=== PATIENT | female | born 1950 | race Caucasian/White ===

== ENCOUNTER → 2016-10-28 | Outpatient (CLI) | payer BC ==
[~2016-10-28] MED LIST: ANAS1TAB6 PO; BROM0.07 OPR; BUTA1TAB54 PO; CALC-214 PO; CARV25TA2 PO; CHOL20009 PO; CLOB-65 TOP; LEVO200T6 PO; LISI20TA3 PO; LORA10CA2 PO; MULT-506 PO; NSNN50 NAE; PRED1SUS3 OPR; PSEU60TA80 PO; PTDOPS OPB; RANI150T3 PO; RIZA10TA18 PO; TOPI50TA24 PO; TRAZ1TAB8 PO; TRAZ50TA35 PO
[2016-10-28 19:16] LABS: URINE APPEARANCE CLEAR (CLEAR); URINE BILIRUBIN NEG (NEG); URINE COLOR YELLOW; URINE EPITHELIAL CELL AUTO 20-30 /lpf (0-5); URINE NITRITE NEG (NEG); UROBILINOGEN NEG (NEG)
[2016-10-28 19:31] LABS: MANUAL MICROSCOPIC REQUIRED? NO; REVIEW REQ? NO
== END | disposition home or self-care (01) ==
LOC: C.LABSPEC 17:49
PROVIDERS: ATTEND Obstetrics & Gynecology
DX: R30.0 Dysuria (principal)

== ENCOUNTER → 2016-11-09 | Outpatient (CLI) | payer BC ==
[2016-11-09 14:31] VITALS: BP 121/67; PULSE 72; TEMP 36.8; O2SAT 96
--- NOTE | 2016-11-09 16:31 | Radiation Oncology Follow-Up ---
Radiation Oncology Follow-Up Date of Visit Nov 09, 2016. Reason For Visit Annual follow-up Radiation Completion Date APB 02/03/15 Diagnosis (1) Breast cancer, stage 1, estrogen receptor positive Status: Resolved Onset Date: 11/11/2014 Histology Subtype: ductal Stage: l (A) Permanent Comment: Status post biopsy 08/29/2014 revealing LCIS Status post lumpectomy and sentinel lymph node biopsy 11/11/2014 revealing infiltrating ductal carcinoma Status post sentinel lymph node biopsy 12/09/2014 Stage [id number] estrogen receptor positive, progesterone receptor negative, HER-2 /nikos negative Status post completion of radiation therapy 02/03/2015 received 3850 cGy Last Edited By: Catherine Anthony on Apr 08, 2015 15:51 History of Present Illness Mrs. Raines is a 66-year-old female without a significant family history of breast cancer. She underwent bilateral digital screening mammogram on 07/31/2014. This showed a small cluster calcifications seen within the left upper outer quadrant which were somewhat linear in distribution and morphology. These were not significantly changed compared to the 2012 and 2011 exams. However given the linear morphology in distribution spot magnification views were recommended for further evaluation. The remainder of the left breast as well as the right breast are stable. The pacemaker device obscured portions of the left axilla. On 08/22/2014 patient underwent a unilateral left digital diagnostic mammogram. Scattered areas of fibroglandular density was seen in the left breast. A subcentimeter cluster of calcifications were noted in the left upper-outer quadrant with calcifications in the cluster varying straight since sizes. These do not appear significantly changed compared to the study in 2012 however given the morphology DCIS cannot be excluded and a stereotactic guided biopsy was recommended. This was given a high red category 4B of intermediate suspicion for malignancy. On 08/29/2014 patient underwent a left breast stereotactic core biopsy. This revealed lobular carcinoma in situ but no evidence of DCIS or invasive carcinoma. Case: [id number]. The patient met with Dr. Mckeon to discuss treatment options. She recommended an excisional needle localization biopsy with preoperative needle placement. This was scheduled and performed on 11/11/2014. The evaluation of the lumpectomy specimen revealed an infiltrative welldifferentiated ductal adenocarcinoma. The tumor measured 0.5 cm in maximal dimension. This was a [place] grade 1 of 3. The infiltrating tumor was less than 0.5 mm from the inked anterior margin of the specimen. The tumor however failed to extend to the blue ink of the margin. There was no lymphovascular or perineural invasion identified. Estrogen receptors were positive as were progesterone receptors. HER-2/nikos oncogene overexpression was absent by immunohistochemistry and negative by FISH analysis. The immunohistochemical staining for Ki-67 failed to highlight the infiltrative glands at all. Thus the Ki-67 score is 0% in terms of the infiltrative ductal adenocarcinoma. Because of this finding it was decided to send the case for a review to Dr. Maria G Agee at the [facility] for consultation. Case: [id number]. This tissue was reviewed at the [facility]. They agree there is a focus of invasive carcinoma with the presence of significant cautery artifact making the evaluation of this focus difficult. Several immunohistochemical stains were provided supporting the diagnosis of invasive ductal carcinoma. This focus is present within a background of pleomorphic lobular carcinoma in situ. Low-grade ductal carcinoma in situ was identified within several small ducts. S/P #: [id number]. With the finding of invasive carcinoma Dr. Mckeon proceeded with a sentinel node biopsy on 12/09/2014. 2 sentinel nodes were identified and both were negative by immunohistochemical stains for cytokeratin. Case: [id number].. Dr. Mckeon has arranged for the patient to be evaluated by Dr. Marshall for review of the role of adjuvant chemotherapy/ hormonal therapy. An Oncotype DX assay was ordered. However there was insufficient carcinoma present to perform this test. We were also asked to see the patient in referral for evaluation and discussion of the role of adjuvant radiation. She was evaluated with a CT simulation and found to be an excellent candidate for accelerated partial breast treatment Interim History She denies any changes to her breast over the past year. She has noted no masses or tenderness and no change of the axilla. She's had no swelling of her arm. She is up-to-date on mammography. We discussed her mammogram performed . There was no evidence of malignancy. She now may have mammograms once a year. Because of her history of breast cancer the radiologist recommended further surveillance. She has a pacemaker which does not allow for an MRI of the breast. She therefore suggested physiologic imaging. BSGI. This is performed at [facility]. She is working with medical oncology to have this scheduled. She did find that her insurance would not cover this at [facility]. She also has a home in [facility]. She is going to try and have the study performed there. She developed a migraine and was seen and had a CAT scan of the head. This showed an abnormality at the base of the skull. She was then sent for a bone scan. This was negative for metastatic disease. This did have the finding of degenerative activity. Allergies Coded Allergies: Amitriptyline (Verified Allergy, Unknown, INCREASED HEARTBEAT, 07/11/16) Caffeine (Verified Allergy, Unknown, Migraines, 07/11/16) Chocolate (Verified Allergy, Unknown, Migraines, 07/11/16) Dairy (Verified Allergy, Unknown, MAYNARD & Vomiting, 07/11/16) Epinephrine (Verified Allergy, Unknown, Hypotensive, 07/11/16) Gluten (Verified Allergy, Unknown, Celiac, 07/11/16) Morphine (Verified Allergy, Unknown, GI Distress, 07/11/16) Paroxetine (Verified Allergy, Unknown, INCREASED HEARTBEAT, 07/11/16) Shellfish (Verified Allergy, Unknown, Hives & Migraine, 07/11/16) Tapioca (Verified Allergy, Unknown, Sever Migraine, 07/11/16) Tramadol (Verified Allergy, Unknown, LIPS SWELLING, 07/11/16) Vancomycin (Verified Allergy, Unknown, Rash, 07/11/16) Verapamil (Verified Allergy, Unknown, Rash, 07/11/16) Uncoded Allergies: ORANGES (Allergy, Unknown, Severe Migraine, 01/12/15) PCN (Allergy, Unknown, Rash & Swollen Tongue, 01/12/15) PEANUTS (Allergy, Unknown, Severe Migraine, 01/12/15) SULFA (Allergy, Unknown, Disorientation, 01/12/15) Home Medications Scheduled Anastrozole (Anastrozole), 1 TAB PO QAM Calcium W/ Magnesium (Calcium & Magnesium), 1 TAB PO BID Carvedilol (Coreg), 25 MG PO BID Cholecalciferol (Vitamin D), 1 TAB PO DAILY AFTERNOON Clobetasol Propionate 0.05% (Temovate 0.05%), 1 APPLN TOP 2XWK Levothyroxine Sodium (Levothyroxine Sodium), 1 TAB PO QAM Lisinopril (Prinivil), 20 MG PO BID Loratadine (Claritin), 10 MG PO QPM Mometasone Furoate (Nasal) (Nasonex), 1 SPRY JOSE LUIS QPM Multivitamin (Multivitamin), 1 TAB PO BID Pseudoephedrine-Guaifenesin (Mucinex D), 1 TAB PO BID Ranitidine Hcl (Zantac), 150 MG PO QAM Topiramate (Topamax), 2 TAB PO BID Trazodone Hcl (Trazodone), 50 MG PO HS Scheduled PRN Butalbital-Acetaminophen (Bupap), 1 TAB PO DAILY PRN for Headache Olopatadine Hydrochloride (Pataday), 1 DROP OPB DAILY PRN for DRYNESS Rizatriptan Benzoate (Maxalt), 10 MG PO DIRECTED PRN for Migraine Review of Systems Gastrointestinal: Symptoms: WNL GI Comments: Pt reports this is related to her hemorrhoids;Taking metamucil; Oral: Symptoms: No Problems Respiratory: Symptoms: WNL Other Respiratory: Just getting over a cold, otherwise no Urinary: Symptoms: WNL Comments: Recent treatment for UTI x 2 - seeing Dr. Cheng for this; Skin: Symptoms: No Problems Breast: Right Upper Arm Measurement: 26.0 Right Mid Arm Measurement: 21.0 Right Wrist Measurement: 14.5 Left Upper Arm Measurement: 26.5 Left Mid Arm Measurement: 20.8 Left Wrist Measurement: 15.0 Arm Dominence: Right Physical Exam Vital Signs Date Time Temp Pulse Resp B/P Pulse Ox O2 Delivery O2 Flow Rate FiO2 11/09/16 14:31 36.8 72 12 121/67 96 Pain: Patient Pain Scale: 0 - 10 Initial Pain Intensity: 0.0 Fatigue: None General Appearance: no apparent distress Eyes: normal inspection, EOMI ENT: normal ENT inspection, hearing grossly normal Neck: supple, no adenopathy, thyroid normal, + pertinent finding (minimal range of motion on flexion and extension of the neck) Respiratory/Chest: lungs clear, no respiratory distress, no accessory muscle use Breast: Breast examination reveals well-healed incisions on the left breast. There are no masses or tenderness and no axillary adenopathy. She has no skin retractions or nipple changes. Using the [place] score cosmesis she has a good outcome. The right breast showed no masses or tenderness and no axillary adenopathy. Cardiovascular: regular rate, rhythm, no gallop, no murmur Extremities: no pedal edema Neurologic/Psychiatric: no motor/sensory deficits, alert, normal mood/affect Skin: warm/dry Lymphatic: no adenopathy Laboratory Studies Test 10/28/16 00:00 11/09/16 15:14 Urine Color YELLOW Urine Appearance CLEAR (CLEAR) Urine pH 8.0 (4.5-7.5) Urine Specific [place] 1.000 (1.000-1.030) Urine Protein NEG (NEG) Urine Glucose (UA) NEG (NEG) Urine Ketones NEG (NEG) Urine Occult Blood NEG (NEG) Urine Nitrite NEG (NEG) Urine Bilirubin NEG (NEG) Urine Urobilinogen NEG (NEG) Urine Leukocyte Esterase MODERATE (NEG) Urine WBC (Auto) 5-10 /hpf (0-5) Urine RBC (Auto) 0-4 /hpf (0-4) Urine Hyaline Casts (Auto) 0 /lpf (0-5) Urine Epithelial Cells (Auto) 20-30 /lpf (0-5) Urine Bacteria (Auto) NEG (NEG) White Blood Count 5.73 K/uL (4.8-10.8) Red Blood Count 3.31 M/uL (4.2-5.4) Hemoglobin 10.7 g/dL (12.0-16.0) Hematocrit 32.6 % (37-47) Mean Corpuscular Volume 98.5 fL (80-100) Mean Corpuscular Hemoglobin 32.3 pg (25-34) Mean Corpuscular Hemoglobin Concent 32.8 g/dl (32-36) Platelet Count 197 K/uL (130-400) Mean Platelet Volume 11.5 fL (7.4-10.4) Neutrophils (%) (Auto) 67.7 % Lymphocytes (%) (Auto) 20.8 % Monocytes (%) (Auto) 9.1 % Eosinophils (%) (Auto) 1.7 % Basophils (%) (Auto) 0.5 % Neutrophils # (Auto) 3.88 K/uL (1.4-6.5) Lymphocytes # (Auto) 1.19 K/uL (1.2-3.4) Monocytes # (Auto) 0.52 K/uL (0.11-0.59) Eosinophils # (Auto) 0.10 K/uL (0-0.5) Basophils # (Auto) 0.03 K/uL (0-0.2) RDW Standard Deviation 50.0 fL (36.4-46.3) RDW Coefficient of Variation 13.9 % (11.5-14.5) Immature Granulocyte % (Auto) 0.2 % Immature Granulocyte # (Auto) 0.01 K/uL (0.00-0.02) Iron Level 45 mcg/dl (35-150) Total Iron Binding Capacity 281 mcg/dl (250-450) Transferrin 222 mg/dl (200-360) Transferrin % Saturation 14 % (15-50) Ferritin 88.3 ng/ml (8.0-388.0) Vitamin B12 Level 1813 pg/mL (211-911) Folate > 24.00 ng/mL (>5.38) Additional Studies BILATERAL DIGITAL DIAGNOSTIC MAMMOGRAM 3D/2D WITH CAD: 08/08/2016 CLINICAL HISTORY: 66-year-old woman with a personal history of left breast cancer status post treatment. LCIS was a originally found at needle biopsy but subsequent excision yielded invasive cancer with DCIS and LCIS. Comparison is made to exams dated: 02/15/2016 mammogram, 08/03/2015 mammogram, 08/29/2014 mammogram, 11/11/2014 localization, 07/30/2013 mammogram, and 07/25/2012 mammogram - [facility]. FINDINGS: Bilateral CC and MLO 2-D digital and tomosynthesis images, and spot magnification left CC and ML views were obtained. There are scattered areas of fibroglandular density in both breasts. Current study was also evaluated with a Computer Aided Detection (CAD) system. Linear scar markers overlie the left breast. A pacemaker projects over large portion of the superior posterior left breast including the pectoralis muscle. There are scattered bilateral benign coarse calcifications and groupings of round benign-appearing micro-calcifications bilaterally. There are minimal vascular calcifications in the breasts as well. No new suspicious mass, focal architectural distortion or cluster of suspicious microcalcifications is seen. IMPRESSION: ACR BI-RADS CATEGORY 2: BENIGN 1. There is no mammographic evidence of malignancy in the breasts. Given that the patient is almost at the two-year karin status post treatment for left breast cancer, would recommend follow-up mammography in 1 year. 2. The patient desires additional screening given her personal history of left breast cancer. However, given her pacemaker implantation she is not a candidate for surveillance with breast MRI. We discussed the alternative physiologic imaging of breast specific imaging imaging (BSGI), which I know is available at [facility]. The patient will discuss additional surveillance with gamma imaging at her next follow-up oncology appointment. These results and recommendations were discussed with the patient at the time of the exam. Approximately 10% of breast cancers are not detected with mammography. A negative mammographic report should not delay biopsy if a clinically suggestive mass is present. Cierra Mtz M.D. ay/:08/08/2016 14:14:59 Clay Maker: Jaci GE(Seth)(M), [facility] letter sent: Normal 1/2 BI-RADS Code: ACR BI-RADS Category 2: Benign Dictated by: Cierra Mtz MD Signed by: Cierra Mtz MD Assessment & Plan Plan: Continue annual mammography. She is planning to have the additional imaging studying done in [facility]. She is having this coordinated through medical oncology. We asked her to return to our office in 1 year. She may call if she has any questions or concerns in the interim. A copy of the mammogram from 08/08/2016 was given to the patient at her request. Total Time In Follow-Up I spent 15 minutes speaking to the patient and performing examination. Us and 15 minutes reviewing information and completing this note. Copy To Jacinto Moon M.D.; Abhay Marshall D.O. Problem Qualifiers (1) Breast cancer, stage 1, estrogen receptor positive: Laterality: left Qualified Codes: C50.912 - Malignant neoplasm of unspecified site of left female breast; Z17.0 - Estrogen receptor positive status [ER+]
== END | disposition home or self-care (01) ==
LOC: C.ONC 13:58
PROVIDERS: ATTEND Radiology Radiation Oncology
DX: Z08 Encounter for follow-up examination after completed treatment for malignant neoplasm (principal); Z92.3 Personal history of irradiation; Z85.3 Personal history of malignant neoplasm of breast

== ENCOUNTER → 2016-11-15 | Outpatient (CLI) | payer BC ==
[~2016-11-15] MED LIST changes: -BROM0.07 OPR; -PRED1SUS3 OPR; -TRAZ1TAB8 PO
[2016-11-15 14:57] LABS: URINE APPEARANCE CLEAR (CLEAR); URINE BILIRUBIN NEG (NEG); URINE COLOR YELLOW; URINE EPITHELIAL CELL AUTO >30 /lpf (0-5); URINE NITRITE NEG (NEG); URINE PH 7.5 (4.5-7.5); UROBILINOGEN NEG (NEG)
[2016-11-15 15:06] LABS: MANUAL MICROSCOPIC REQUIRED? NO; REVIEW REQ? YES
== END | disposition home or self-care (01) ==
LOC: C.LAB1850 13:20
PROVIDERS: ATTEND Obstetrics & Gynecology
DX: N39.0 Urinary tract infection, site not specified (principal)

== ENCOUNTER → 2017-02-10 | Outpatient (CLI) | payer BC ==
[2017-02-10 14:55] LABS: BASO % 0.7 %; BASO ABS # 0.03 K/uL (0-0.2); COMPLETE YES; EOS % 1.7 %; LYMPH ABS # 0.92 K/uL (1.2-3.4); MEAN CELL VOLUME 100.3 fL (80-100); MEAN CORPUSCULAR HEMOGLOBIN 32.2 pg (25-34); MEAN CORPUSCULAR HGB CONC 32.1 g/dl (32-36); MEAN PLATELET VOLUME 11.7 fL (7.4-10.4); MONO % 9.6 %; PLATELET COUNT 190 K/uL (130-400); RED BLOOD COUNT 3.79 M/uL (4.2-5.4); WHITE BLOOD COUNT 4.18 K/uL (4.8-10.8)
[2017-02-10 15:11] LABS: ALT/SGPT 25 U/L (12-78); BLOOD UREA NITROGEN 12 mg/dl (7-18); BUN/CREATININE RATIO 18.5 (10-20); CARBON DIOXIDE 28 mmol/L (21-32); CHLORIDE 107 mmol/L (98-107); CREATININE 0.67 mg/dl (0.60-1.20); GLUCOSE 101 mg/dl (70-99); POTASSIUM 3.4 mmol/L (3.5-5.1); SODIUM 142 mmol/L (136-145)
[2017-02-10 15:14] LABS: ALB/GLOB RATIO 1.2 (0.9-2); ALKALINE PHOSPHATASE 86 U/L (45-117); AST/SGOT 11 U/L (15-37)
[2017-02-10 15:16] LABS: CALCIUM 9.5 mg/dl (8.5-10.1)
== END | disposition home or self-care (01) ==
LOC: C.LAB 12:31
PROVIDERS: ATTEND Nurse Practitioner Family
DX: C50.919 Malignant neoplasm of unspecified site of unspecified female breast (principal)

== ENCOUNTER → 2017-05-09 | Outpatient (CLI) | payer BC | END | disposition home or self-care (01) | LOC: C.LABSPEC 17:31 | PROVIDERS: ATTEND Obstetrics & Gynecology | DX: N95.2 Postmenopausal atrophic vaginitis (principal) ==

== ENCOUNTER → 2017-05-16 | Outpatient (CLI) | payer BC ==
--- NOTE | 2017-05-16 14:07 | DIAGNOSTIC IMAGING REPORT ---
BILATERAL KNEE RADIOGRAPHS CLINICAL HISTORY: Chronic bilateral knee pain. COMPARISON: Right knee radiographs April 05, 2016. FINDINGS: Right knee: Alignment of the right knee is anatomic. There is no fracture or joint effusion. Joint spaces are preserved. There is mild osteophytosis of the right knee. Left knee: Alignment of the left knee is anatomic. There is mild medial compartment joint space narrowing of the left knee. There is a small to moderate left knee joint effusion. Osteophytosis of the left knee is present. IMPRESSION: Right knee: 1. No acute fracture. 2. Mild osteoarthritis of the right knee. Left knee: 1. No acute fracture. 2. Mild to moderate osteoarthritis within the medial and patellofemoral compartments of the left knee. 3. Small to moderate left knee joint effusion. Electronically signed by: Vicente Slade M.D. 05/16/2017 2:05 PM Dictated Date/Time: 05/16/2017 2:02 PM
== END | disposition home or self-care (01) ==
LOC: C.RDSM 13:34
PROVIDERS: ATTEND Physician Assistant
DX: G89.29 Other chronic pain (principal); M17.0 Bilateral primary osteoarthritis of knee

== ENCOUNTER → 2017-06-29 | Outpatient (CLI) | payer BC | END | disposition home or self-care (01) | LOC: C.LABSPEC 16:39 | PROVIDERS: ATTEND Podiatrist Primary Podiatric Medicine | DX: B35.1 Tinea unguium (principal) ==

== ENCOUNTER → 2017-07-11 | Outpatient (CLI) | payer BC | END | disposition home or self-care (01) | LOC: C.MAMM 10:52 | PROVIDERS: ATTEND Nurse Practitioner Family | DX: C50.919 Malignant neoplasm of unspecified site of unspecified female breast (principal); M81.0 Age-related osteoporosis without current pathological fracture; M85.851 Other specified disorders of bone density and structure, right thigh; M85.852 Other specified disorders of bone density and structure, left thigh ==

== ENCOUNTER → 2017-08-09 | Outpatient (CLI) | payer BC ==
--- NOTE | 2017-08-10 07:47 | MAMMOGRAPHY REPORT ---
BILATERAL DIGITAL DIAGNOSTIC MAMMOGRAM TOMOSYNTHESIS WITH CAD: 08/09/2017 CLINICAL HISTORY: History of left breast cancer status post lumpectomy October 2014. The patient rep orts no current complaints. TECHNIQUE: Breast tomosynthesis in addition to standard 2D mammography was performed. Current study was also evaluated with a Computer Aided Detection (CAD) system. Bilateral CC and MLO 2-D and tomosy nthesis images and spot magnification left CC and ML views were obtained. COMPARISON: Comparison is made to exams dated: 08/08/2016 mammogram, 02/15/2016 mammogram, 08/03/2015 mammogram, 11/11/2014 specimen, 11/11/2014 localization, and 08/29/2014 mammogram - [facility]. BREAST COMPOSITION: There are scattered areas of fibroglandular density in both breasts. FINDINGS: There are stable post surgical changes in the left upper outer quadrant from prior lumpecto my. There are no suspicious masses, calcifications, or areas of architectural distortion noted in ei ther breast. There has been no significant interval change mammographically compared to prior exams. Scattered bilateral benign-appearing calcifications are not significantly changed. A pacemaker pro jects over the left pectoralis muscle. IMPRESSION: ACR BI-RADS CATEGORY 2: BENIGN There is no mammographic evidence of malignancy in either breast. A 1 year screening mammogram is rec ommended. The patient has been verbally notified of the results. Approximately 10% of breast cancers are not detected with mammography. A negative mammographic report should not delay biopsy if a clinically suggestive mass is present. Anastasia Porter M.D. ah/:08/09/2017 10:17:21 Size Changer: Lindsay GE(Seth)(Norah), [facility] letter sent: Normal 1/2 BI-RADS Code: ACR BI-RADS Category 2: Benign
== END | disposition home or self-care (01) ==
LOC: C.MAMM 09:54
PROVIDERS: ATTEND Surgery
DX: Z85.3 Personal history of malignant neoplasm of breast (principal)

== ENCOUNTER → 2017-11-02 | Outpatient (CLI) | payer OTHER ==
[~2017-11-02] VITALS: Ht 170.2 cm; Wt 62.2 kg
[2017-11-02 12:03] VITALS: BP 137/82; PULSE 93; Ht 170.2 cm; Wt 62.2 kg
== END | disposition home or self-care (01) ==
LOC: C.NEUR 11:25
PROVIDERS: ATTEND Internal Medicine Pulmonary Disease
DX: G47.33 Obstructive sleep apnea (adult) (pediatric) (principal)

== ENCOUNTER → 2017-11-09 | Outpatient (CLI) | payer OTHER ==
[~2017-11-09] MED LIST changes: +GABA-113 PO
[2017-11-09 14:32] VITALS: BP 123/79; PULSE 95; TEMP 36.7; O2SAT 98
--- NOTE | 2017-11-09 16:53 | Radiation Oncology Follow-Up ---
Radiation Oncology Follow-Up Date of Visit Nov 09, 2017. Reason For Visit Annual follow-up Radiation Completion Date 02/03/15 Diagnosis (1) Breast cancer, stage 1, estrogen receptor positive Status: Resolved Onset Date: 11/11/2014 Histology Subtype: ductal Stage: l (A) Permanent Comment: Status post left breast biopsy 08/29/2014 revealing LCIS Status post lumpectomy and sentinel lymph node biopsy 11/11/2014 revealing infiltrating ductal carcinoma Status post sentinel lymph node biopsy 12/09/2014 Stage [id number] estrogen receptor positive, progesterone receptor negative, HER-2 /nikos negative Status post completion of radiation therapy 02/03/2015 received 3850 cGy Last Edited By: Catherine Anthony on Nov 09, 2017 16:45 History of Present Illness Mrs. Araujo is without a significant family history of breast cancer. She underwent bilateral digital screening mammogram on 07/31/2014. This showed a small cluster calcifications seen within the left upper outer quadrant which were somewhat linear in distribution and morphology. These were not significantly changed compared to the 2012 and 2011 exams. However given the linear morphology in distribution spot magnification views were recommended for further evaluation. The remainder of the left breast as well as the right breast are stable. The pacemaker device obscured portions of the left axilla. On 08/22/2014 patient underwent a unilateral left digital diagnostic mammogram. Scattered areas of fibroglandular density was seen in the left breast. A subcentimeter cluster of calcifications were noted in the left upper-outer quadrant with calcifications in the cluster varying straight since sizes. These do not appear significantly changed compared to the study in 2012 however given the morphology DCIS cannot be excluded and a stereotactic guided biopsy was recommended. This was given a high red category 4B of intermediate suspicion for malignancy. On 08/29/2014 patient underwent a left breast stereotactic core biopsy. This revealed lobular carcinoma in situ but no evidence of DCIS or invasive carcinoma. Case: [id number]. The patient met with Dr. Mckeon to discuss treatment options. She recommended an excisional needle localization biopsy with preoperative needle placement. This was scheduled and performed on 11/11/2014. The evaluation of the lumpectomy specimen revealed an infiltrative welldifferentiated ductal adenocarcinoma. The tumor measured 0.5 cm in maximal dimension. This was a Richard grade 1 of 3. The infiltrating tumor was less than 0.5 mm from the inked anterior margin of the specimen. The tumor however failed to extend to the blue ink of the margin. There was no lymphovascular or perineural invasion identified. Estrogen receptors were positive as were progesterone receptors. HER-2/nikos oncogene overexpression was absent by immunohistochemistry and negative by FISH analysis. The immunohistochemical staining for Ki-67 failed to highlight the infiltrative glands at all. Thus the Ki-67 score is 0% in terms of the infiltrative ductal adenocarcinoma. Because of this finding it was decided to send the case for a review to Dr. Maria G Agee at the [facility] for consultation. Case: [id number]. This tissue was reviewed at the [facility]. They agree there is a focus of invasive carcinoma with the presence of significant cautery artifact making the evaluation of this focus difficult. Several immunohistochemical stains were provided supporting the diagnosis of invasive ductal carcinoma. This focus is present within a background of pleomorphic lobular carcinoma in situ. Low-grade ductal carcinoma in situ was identified within several small ducts. S/P #: [id number]. With the finding of invasive carcinoma Dr. Mckeon proceeded with a sentinel node biopsy on 12/09/2014. 2 sentinel nodes were identified and both were negative by immunohistochemical stains for cytokeratin. Case: [id number].. Dr. Mckeon has arranged for the patient to be evaluated by Dr. Marshall for review of the role of adjuvant chemotherapy/ hormonal therapy. An Oncotype DX assay was ordered. However there was insufficient carcinoma present to perform this test. We were also asked to see the patient in referral for evaluation and discussion of the role of adjuvant radiation. She was evaluated with a CT simulation and found to be an excellent candidate for accelerated partial breast treatment Interim History She's been doing well over this past year. She denies any changes to her breast. She's noted no masses or tenderness no changes of the axilla. She's had no swelling of her arm. She is up-to-date on mammography. She is on anastrozole and denies side effects. Allergies Coded Allergies: Amitriptyline (Verified Allergy, Unknown, INCREASED HEARTBEAT, 07/11/16) Caffeine (Verified Allergy, Unknown, Migraines, 07/11/16) Chocolate (Verified Allergy, Unknown, Migraines, 07/11/16) Dairy (Verified Allergy, Unknown, MAYNARD & Vomiting, 07/11/16) Epinephrine (Verified Allergy, Unknown, Hypotensive, 07/11/16) Gluten (Verified Allergy, Unknown, Celiac, 07/11/16) Morphine (Verified Allergy, Unknown, GI Distress, 07/11/16) Paroxetine (Verified Allergy, Unknown, INCREASED HEARTBEAT, 07/11/16) Shellfish (Verified Allergy, Unknown, Hives & Migraine, 07/11/16) Tapioca (Verified Allergy, Unknown, Sever Migraine, 07/11/16) Tramadol (Verified Allergy, Unknown, LIPS SWELLING, 07/11/16) Vancomycin (Verified Allergy, Unknown, Rash, 07/11/16) Verapamil (Verified Allergy, Unknown, Rash, 07/11/16) Uncoded Allergies: ORANGES (Allergy, Unknown, Severe Migraine, 01/12/15) PCN (Allergy, Unknown, Rash & Swollen Tongue, 01/12/15) PEANUTS (Allergy, Unknown, Severe Migraine, 01/12/15) SULFA (Allergy, Unknown, Disorientation, 01/12/15) Home Medications Scheduled Anastrozole (Anastrozole), 1 TAB PO QAM Calcium W/ Magnesium (Calcium & Magnesium), 1 TAB PO BID Carvedilol (Coreg), 25 MG PO BID Cholecalciferol (Vitamin D), 1 TAB PO DAILY AFTERNOON Clobetasol Propionate 0.05% (Temovate 0.05%), 1 APPLN TOP 2XWK Gabapentin (Neurontin), 300 MG PO HS Levothyroxine Sodium (Levothyroxine Sodium), 1 TAB PO QAM Lisinopril (Prinivil), 20 MG PO BID Loratadine (Claritin), 10 MG PO QPM Mometasone Furoate (Nasal) (Nasonex), 1 SPRY JOSE LUIS QPM Multivitamin (Multivitamin), 1 TAB PO BID Pseudoephedrine-Guaifenesin (Mucinex D), 1 TAB PO BID Ranitidine Hcl (Zantac), 150 MG PO QAM Topiramate (Topamax), 2 TAB PO BID Trazodone Hcl (Trazodone), 50 MG PO HS Scheduled PRN Butalbital-Acetaminophen (Bupap), 1 TAB PO DAILY PRN for Headache Olopatadine Hydrochloride (Pataday), 1 DROP OPB DAILY PRN for DRYNESS Rizatriptan Benzoate (Maxalt), 10 MG PO DIRECTED PRN for Migraine Review of Systems Gastrointestinal: Symptoms: WNL, Diarrhea GI Comments: takes fibercon Oral: Symptoms: No Problems Respiratory: Symptoms: WNL Other Respiratory: sleep apnea Urinary: Symptoms: WNL Skin: Symptoms: No Problems Breast: Right Upper Arm Measurement: 26.0 Right Mid Arm Measurement: 20.5 Right Wrist Measurement: 14.5 Left Upper Arm Measurement: 26.5 Left Mid Arm Measurement: 20.0 Left Wrist Measurement: 14.5 Arm Dominence: Right Physical Exam Vital Signs Date Time Temp Pulse Resp B/P (MAP) Pulse Ox O2 Delivery O2 Flow Rate FiO2 11/09/17 14:32 36.7 95 18 123/79 98 Fatigue: None General Appearance: no apparent distress Eyes: normal inspection, EOMI ENT: normal ENT inspection, hearing grossly normal Neck: no adenopathy, thyroid normal Respiratory/Chest: lungs clear, no respiratory distress, no accessory muscle use Breast: Breast examination reveals well-healed incisions of the left breast. There are no masses or tenderness no axillary adenopathy. She has no skin retractions or nipple changes. Using the Ihlen score of cosmesis she has excellent outcome. The right breast showed no masses or tenderness and no axillary adenopathy. Cardiovascular: regular rate, rhythm, no gallop, no murmur Extremities: no pedal edema Neurologic/Psychiatric: no motor/sensory deficits, alert, normal mood/affect Pain Management Patient Reports Pain: Yes Pain Location: knees and neck Patient Preferred Pain Scale: 0 - 10 Initial Pain Intensity: 4.0 Pain Management Plan She has joint pain of the knees as well as neck discomfort. Pain is controlled with massage, physical therapy and heat. Laboratory Laboratory Results: not applicable Pathology Pathology Results: not applicable Imaging Imaging Studies: were reviewed, and pertinent findings noted below Imaging Comments Patient: FRANCOIS ARAUJO [facility] Rec: [id number] Address1: [address] Address2: [facility] ID: [id number] Date: 1950 Sex: F Ref Phy: Alejandra Jarrett CRNP Att Phy: Leida Mckeon MD Evon Phy: Arelis Cheng M.D. Inter Phy: Anastasia Porter MD [facility] Zip: [place] [address] SC: [id number] Report #: [id number] Operations Officer Afloat: FARZANA Diagnosis: 12 MO F/U BILATERAL Service Date: 08/09/17 MNE: [id number] Ordering Dr: Leida Mckeon MD CC: Leida Mckeon MD CONF: DICTATED BY: Anastasia Porter MD MAMMOGRAPHY REPORT BILATERAL DIGITAL DIAGNOSTIC MAMMOGRAM TOMOSYNTHESIS WITH CAD: 08/09/2017 CLINICAL HISTORY: History of left breast cancer status post lumpectomy October 2014. The patient reports no current complaints. TECHNIQUE: Breast tomosynthesis in addition to standard 2D mammography was performed. Current study was also evaluated with a Computer Aided Detection (CAD ) system. Bilateral CC and MLO 2-D and tomosynthesis images and spot magnification left CC and ML views were obtained. COMPARISON: Comparison is made to exams dated: 08/08/2016 mammogram, 02/15/2016 mammogram, 08/03/2015 mammogram, 11/11/2014 specimen, 11/11/2014 localization, and 08/29/2014 mammogram - [facility]. BREAST COMPOSITION: There are scattered areas of fibroglandular density in both breasts. FINDINGS: There are stable post surgical changes in the left upper outer quadrant from prior lumpectomy. There are no suspicious masses, calcifications , or areas of architectural distortion noted in either breast. There has been no significant interval change mammographically compared to prior exams. Scattered bilateral benign-appearing calcifications are not significantly changed. A pacemaker projects over the left pectoralis muscle. IMPRESSION: ACR BI-RADS CATEGORY 2: BENIGN There is no mammographic evidence of malignancy in either breast. A 1 year screening mammogram is recommended. The patient has been verbally notified of the results. Approximately 10% of breast cancers are not detected with mammography. A negative mammographic report should not delay biopsy if a clinically suggestive mass is present. Anastasia Porter M.D. /:08/09/2017 10:17:21 Wood Panel Inspector: Lindsay MORE)(Norah), [facility] letter sent: Normal 1/2 BI-RADS Code: ACR BI-RADS Category 2: Benign Dictated by: Anastasia Porter MD Signed by: Anastasia Porter MD Assessment & Plan Plan: Continue regular follow-up with medical oncology and her primary care physician. She continues on anastrozole. Continue follow-up mammography. We reviewed that her next mammogram is a screening mammogram. This is showing stability in her studies. We asked her to return to our office in 1 year. She may call if she has any questions or concerns in the interim. Total Time In Follow-Up I spent 20 minutes speaking to the patient and performing examination. I spent 15 minutes reviewing information in completing this note. Copy To Jacinto Moon M.D.; Abhay Marshall D.O. Problem Qualifiers (1) Breast cancer, stage 1, estrogen receptor positive: Laterality: left Qualified Codes: C50.912 - Malignant neoplasm of unspecified site of left female breast; Z17.0 - Estrogen receptor positive status [ER+]
== END | disposition home or self-care (01) ==
LOC: C.ONC 14:12
PROVIDERS: ATTEND Physician Assistant Medical
DX: Z08 Encounter for follow-up examination after completed treatment for malignant neoplasm (principal); Z92.3 Personal history of irradiation; Z85.3 Personal history of malignant neoplasm of breast

== ENCOUNTER → 2017-11-22 | Outpatient (CLI) | payer OTHER ==
[2017-11-22 15:42] LABS: BASO % 0.6 %; BASO ABS # 0.02 K/uL (0-0.2); EOS % 2.3 %; EOS ABS # 0.08 K/uL (0-0.5); HEMATOCRIT 35.4 % (37-47); HEMOGLOBIN 11.5 g/dL (12.0-16.0); LYMPH % 29.3 %; LYMPH ABS # 1.04 K/uL (1.2-3.4); MEAN CELL VOLUME 100.3 fL (80-100); MEAN CORPUSCULAR HEMOGLOBIN 32.6 pg (25-34); MEAN CORPUSCULAR HGB CONC 32.5 g/dl (32-36); MEAN PLATELET VOLUME 11.4 fL (7.4-10.4); MONO % 10.7 %; MONO ABS # 0.38 K/uL (0.11-0.59); NEUT % 57.1 %; NEUT ABS # 2.03 K/uL (1.4-6.5); PLATELET COUNT 153 K/uL (130-400); RED CELL DISTRIBUTION WIDTH CV 13.2 % (11.5-14.5); RED CELL DISTRIBUTION WIDTH SD 47.7 fL (36.4-46.3); WHITE BLOOD COUNT 3.55 K/uL (4.8-10.8)
[2017-11-22 16:11] LABS: ALBUMIN 3.6 gm/dl (3.4-5.0); BLOOD UREA NITROGEN 9 mg/dl (7-18); CARBON DIOXIDE 27 mmol/L (21-32); CREATININE 0.67 mg/dl (0.60-1.20); GLUCOSE 86 mg/dl (70-99); POTASSIUM 3.2 mmol/L (3.5-5.1); SODIUM 140 mmol/L (136-145)
[2017-11-22 16:13] LABS: ALKALINE PHOSPHATASE 74 U/L (45-117); ALT/SGPT 20 U/L (12-78); AST/SGOT 12 U/L (15-37)
== END | disposition home or self-care (01) ==
LOC: C.LAB 15:10
PROVIDERS: ATTEND Nurse Practitioner Family
DX: Z85.3 Personal history of malignant neoplasm of breast (principal)

== ENCOUNTER 2017-11-30 08:32 | Day surgery (SDC) | payer OTHER ==
[~2017-11-30] VITALS: Ht 170.2 cm; Wt 62.5 kg
[2017-11-30 09:24] VITALS: BP 139/60; PULSE 79; TEMP 36.5; O2SAT 98; Ht 170.2 cm; Wt 62.5 kg
[2017-11-30] MEDS ORDERED: BUPIVACAINE 0.5 % 5 MG/1 ML MPF 30ML VIAL ONE (09:24)
[2017-11-30] MEDS ORDERED: BACITRACIN 50000 UNIT VIAL ONE (09:24)
[2017-11-30] MEDS ORDERED: LIDOCAINE HCL 1% 20 ML VIAL ONE (09:24)
--- NOTE | 2017-11-30 09:29 | History & Physical Bridge Note ---
H&P Re-Evaluation Bridge Note: I have examined the patient, reviewed the History & Physical and in the interval since the performance of the History & Physical I have noted the following changes of clinical significance: At [facility]. We discussed antibiotics and sedation and her prior reactions. No changes noted
[2017-11-30] MEDS ORDERED: CLINDAMYCIN 600 MG/54 ML D5W IV SCH (09:30)
[2017-11-30] MEDS ORDERED: MIDAZOLAM HCL 5 MG/ML 1 ML VIAL ONE (09:34)
[2017-11-30] MEDS ORDERED: FENTANYL CITRATE INJ 50 MCG/1 ML 2 ML VIAL ONE (09:34)
--- NOTE | 2017-11-30 10:05 | Pre Sedation Assessment ---
Pre Sedation Assessment General Date of Sedation: Nov 30, 2017. Vital Signs Past 12 Hours Date Time Temp Pulse Resp B/P (MAP) Pulse Ox O2 Delivery O2 Flow Rate FiO2 11/30/17 09:24 36.5 79 20 139/60 (86) 98 Room Air Review Cardiovascular: regular rate, rhythm Lungs: lungs clear Pre-Sedation Airway Assessment Smoking Status: Never Smoker Hx of Sleep Apnea: No Hx of difficult intubation: No Short Thick Neck: No Thyro-mental Distance: > 3 Finger Breadths Oral Cavity: WNL Mallampati Classification: Class III ASA Classification: Class II NPO Status Date of Last Intake of Fluids: Nov 29, 2017 Time of Last Intake of Fluids: 2300 Date of Last Intake of Solids: Nov 29, 2017 Time of Last Intake of Solids: 2200 Procedure Planning Contraindications for Sedation: None Current Medications Reviewed: Yes Notes The planned sedation has been discussed with the patient. Informed Consent was obtained. I have identified the patient, determined the appropriateness of sedation and have assessed the patient immediately prior to the procedure. All medicine(s) and interventions are by my order.
[2017-11-30] MEDS ORDERED: ONDANSETRON INJ 2 MG/ML 2 ML VIAL ONE (10:12)
--- NOTE | 2017-11-30 10:43 | [facility] Operative Report ---
Operative Report Date of Service Nov 30, 2017. Operative Report Procedure performed: Implantation of dual-chamber permanent pacemaker Staff atomic process engineer: Siddharth Hoyos MD Indication: The patient is a 67-year-old woman with a history of a nonischemic cardiomyopathy who had previously undergone implantation of biventricular ICD. She has noted during routine monitoring to have reached elective replacement interval presents today for generator change. Procedure in detail: The patient was informed of the risks benefits and alternatives to the intended procedure and she wished to proceed. She was taken to the electrophysiology suite in a fasting state. A preoperative antibiotic had been administered. The patient was monitored electrocardiographically throughout today's procedure and conscious sedation was administered per protocol. The left upper pectoral area is prepped and draped in usual sterile fashion. This area was anesthetized using subcutaneous menstruation of a xylocaine solution. An incision was made at this site and carried down to the prepectoralis fascia using sharp dissection. Electrocautery was also employed for dissection as well as for hemostasis. The previously implanted device and leads within free from the surrounding scar tissue. Partial capsulotomy was performed. The leads were detached from the old device and attached to a new device. The device pocket was irrigated with antibiotic solution. The device and leads were then placed in the pocket and pocket was closed in 3 layers of absorbable suture. Steri- Strips and sterile dressing were applied. The device was tested noninvasively prior to conclusion the procedure. The patient tolerated procedure well there no immediate complications. Equipment used: New pulse generator: Document Restorer [employer]onic. Model number: DT BA 1 D4 serial number [id number] Retained Right atrial lead: Document Restorer [employer]. Model number: 5076 serial number [id number] Retained Right ventricular lead: Document Restorer [employer]tronic. Model number: 6947 M serial number [id number] Retained left ventricular lead: Document Restorer [employer]onic. Model number 4194 serial number [id number] V Explanted pulse generator: Document Restorer Medtronic. Model number the D 314 TRM serial number [id number] Measured data: Right atrial lead: P-waves measured 3.0 millivolts. Pacing threshold 0.75 volts at 0.4 milliseconds with a pacing impedance of 779 Ohms Right ventricular lead: R-waves measured 6.4 millivolts pacing threshold was 1 volt at 0.4 milliseconds with a pacing impedance of 399 Ohms Left ventricular lead: Pacing threshold 1.25 volts at 0.4 milliseconds with a pacing impedance of 608 Ohms Impression: Successful generator change for biventricular ICD I attest to the content of the Intraoperative Record and any orders documented therein. Any exceptions are noted below.
[2017-11-30] MEDS ORDERED: MECL1TAB40 PO (10:44)
[2017-11-30] MEDS ORDERED: FLVHFA110 INH (10:44)
[2017-11-30] MEDS ORDERED: POLY150C4 PO (10:44)
[2017-11-30] MEDS ORDERED: DICL1GEL12 (10:44)
--- NOTE | 2017-11-30 10:45 | Discharge Instructions ---
Discharge Instructions Procedure Procedure Date: Nov 30, 2017. Reason for Visit: Elective Replacement Indicator. Discharge Discharge Date: Nov 30, 2017. Discharge Diagnosis: Cardiomyopathy Last Recorded Wt (Kilograms): 62.5 Anesthesia Post Anesthesia Instructions: If you have had General Anesthesia or IV Sedation: * Do not drive today. * Resume driving when surgeon permits. * Do not make important decisions or sign legal documents today. * Call surgeon for: 1. Temperature elevations greater than 101 degrees F. 2. Uncontrollable pain. 3. Excessive bleeding. 4. Persistent nausea and vomiting. 5. Medication intolerance (nausea, vomiting or rash). * For nausea and vomiting use only clear liquids such as: tea, soda, bouillon until nausea subsides, then gradually increase diet as tolerated. * If you have any concerns or questions, call your surgeon's office. If physician is unavailable and it is an emergency, call 911 or go to the nearest emergency room. Instructions Activity Recommendations: shower/bathe limit Return to School/Work: with the following limitations Recommended Home Diet: resume previous diet Allergies: Coded Allergies: Amitriptyline (Verified Allergy, Unknown, INCREASED HEARTBEAT, 07/11/16) Caffeine (Verified Allergy, Unknown, Migraines, 07/11/16) Chocolate (Verified Allergy, Unknown, Migraines, 07/11/16) Dairy (Verified Allergy, Unknown, MAYNARD & Vomiting, 07/11/16) Epinephrine (Verified Allergy, Unknown, Hypotensive, 07/11/16) Gluten (Verified Allergy, Unknown, Celiac, 07/11/16) Morphine (Verified Allergy, Unknown, GI Distress, 07/11/16) Paroxetine (Verified Allergy, Unknown, INCREASED HEARTBEAT, 07/11/16) Shellfish (Verified Allergy, Unknown, Hives & Migraine, 07/11/16) Tapioca (Verified Allergy, Unknown, Sever Migraine, 07/11/16) Tramadol (Verified Allergy, Unknown, LIPS SWELLING, 07/11/16) Vancomycin (Verified Allergy, Unknown, Rash, 07/11/16) Verapamil (Verified Allergy, Unknown, Rash, 07/11/16) Uncoded Allergies: ORANGES (Allergy, Unknown, Severe Migraine, 01/12/15) PCN (Allergy, Unknown, Rash & Swollen Tongue, 01/12/15) PEANUTS (Allergy, Unknown, Severe Migraine, 01/12/15) SULFA (Allergy, Unknown, Disorientation, 01/12/15) Provider Instructions No driving for 24 hours. Keep wound dry and steri-strip intact until f/u appointment Follow Up Antonio Joya Recommendations: Call your doctor if: * Temperature above 101 degrees * Pain not relieved by pain medicine ordered * There is increased drainage or redness from any incision * You have any unanswered questions or concerns. Your Doctors Instructions noted above were prepared by provider Edgard Hoyos. Patient Signature Section: Patient Instructions Signature Page Gayle aRines Patient (or Guardian) Signature/Date: I have read and understand the instructions given to me by my caregivers. Caregiver/RN/Doctor Signature/Date: The above-named patient and/or guardian has received patient instructions on this date. + Original Patient Signature Page (only) stays with chart. Please make copy for patient.
[2017-11-30] MEDS ORDERED: ACET-1256 PO (10:50)
[2017-11-30 10:55] VITALS: BP 109/50; PULSE 73; TEMP 36.6; O2SAT 98
[2017-11-30 11:28] VITALS: BP 123/57; PULSE 68; TEMP 36.6; O2SAT 98
[2017-11-30] MEDS ORDERED: CLIN300C2 PO (11:49)
[2017-11-30 12:05] VITALS: BP 112/58; PULSE 70; TEMP 36.6; O2SAT 99
== END 2017-11-30 12:15 | disposition home or self-care (01) ==
LOC: C.ACU 08:32
PROVIDERS: ATTEND Internal Medicine Clinical Cardiac Electrophysiology
DX: I42.9 Cardiomyopathy, unspecified (principal); I44.7 Left bundle-branch block, unspecified; I47.1 Supraventricular tachycardia; I34.0 Nonrheumatic mitral (valve) insufficiency; Z95.810 Presence of automatic (implantable) cardiac defibrillator; G47.33 Obstructive sleep apnea (adult) (pediatric); E03.9 Hypothyroidism, unspecified; I10 Essential (primary) hypertension; Z79.899 Other long term (current) drug therapy; Z82.49 Family history of ischemic heart disease and other diseases of the circulatory system; Z82.5 Family history of asthma and other chronic lower respiratory diseases; Z91.013 Allergy to seafood; Z91.018 Allergy to other foods

== ENCOUNTER → 2018-02-13 | Outpatient (CLI) | payer OTHER ==
[~2018-02-13] MED LIST changes: +ACET-1256 PO; -ANAS1TAB6 PO; +ANAS1TAB7 PO; +DICL1GEL12; +FLVHFA110 INH; +MECL1TAB40 PO; -NSNN50 NAE; +POLY150C4 PO
--- NOTE | 2018-02-14 06:41 | PAP/PSG TECHNICIAN REPORT ---
[facility] Clinical Trial Educator Polysomnogram Report Study name: None Report date: 02/14/2018 Study date: 02/13/2018 Referring Physician: Dr. Anatoliy Barroso DO Name: FRANCOIS RAINES Interpreting Physician: Anatoliy Barroso D.O. Date of : 1950 Clinical Trial Educator: Niki Nolan [facility]. Sex: Female Age: 67 StudyType: PSG PAP Weight: 138 lbs Height: 67 years, Height 5' 5.25" BMI: 22.79 Medications: Anastrozole 1 mg, Butalbital-Acetaminophen 50-325 mg, Calcium Citrate 315-200 mg, Carvedilol 25 mg, Claritin 10 mg, Clindamycin HCL 300 mg, Clobetasol Propionate 0.05%, Ferrex, Fluticasone Propionate 50 MCG, Gabapentin 300 mg, Levothyroxine Sodium 200 MCG, Lisinorpil 40 mg, Maxalt, Meclizine 12.5 mg, Mucinex 600 mg, Multi Vitamins, Pataday 0.2%, Topiramate 50 mg, Trazodone 50 mg, Tylenol Arthritis, Vitamin D 2000 units, Voltaren 1%, Zantac 150 Patient History 67 yr .old female here for a BIPAP titration sleep study. Patient is currently on a CPAP pressure of +19. Patient brought her full-face mask to use for titration. Parameters Monitored NPSG: E1-M2, E2-M1, Fp1-M2, Fp2-M1, F3-M2, F4-M2, F4-M1, C3-M2, C4-M2, C4-M1, O1-M2, O2-M2, O2-M1, T3-M2, T4-M1, P3-M2, P4-M1, CHIN1, CHIN2, HR, EKG, Legs, PFLOW, SNOR, FLOW, CFLOW, Tidal Volume, THOR, ABDO, SpO2, PLTH, CPRESS, ETCO2 Wave, ETCO2, pH Sleep Architecture Sleep Stages Time at Lights Off 9:55:11 PM STAGES Time (min.) TST (%) Time at Lights On 6:08:11 AM Wake 114.0 -- Total Recording Time (TRT) 493.50 min. N1 18.5 5 Total Sleep Period (TSP) 460.5 min. N2 195.0 51 Total Sleep Time (TST) 379.0min. N3 67.5 18 Awake Time 114.0 min. REM 98.0 26 Wake after Sleep Onset 81.5 min. Sleep Efficiency (SE) 77 % Sleep Onset Latency (ARYA) 32.5 min. Number of Stage 1 Shifts None Awakenings 33 Stage Changes 115 Number of REM periods 6 REM 98.0 26 REM Latency 179.0 min. NREM 281.0 74 Body Position Analysis Supine Right Left Side Prone Vertical Total Sleep Time (min.) 493.0 0.0 0.0 0.00 0.0 0.0 Total Sleep Time (%) 100% 0% 0% 0 0% N/A% Total Sleep Time REM (min.) 98.0 0.0 0.0 None 0.0 0.0 Total Sleep Time NREM (min.) 281.0 0.0 0.0 None 0.0 0.0 Intermittent Wake (min.) 114.0 0.0 0.0 None 0.0 0.0 Total Sleep Period (%) 100% None None None None None Arousals Myoclonus (PLM) * Events Count Index Events Count Index Spontaneous 17 3 Events Awake (PLMW) 74 38.9 Respiratory 15 2.8 Events Asleep w/ Arousal (PLMA) 3 0.5 PLM 3 0 Events Asleep w/o Arousal (PLMS) 5 0.8 Snoring 4 1 Total Asleep 8 1.3 Total 39 6 Total 82 10 Respiratory Analysis * CA OA MA CH H RERA Total Count 16 61 7 0 18 0 102 Index 2.5 9.7 1.1 0 2.8 0 16.1 Mean Duration 27.2 43.6 43.8 0.00 42.4 0.0 40.8 Longest Duration 48.9 97.7 57.8 0.00 57.8 0.0 97.7 Respiratory Event Summary Total Supine ~Supine Right Left Prone REM NREM Apneas Count 84 84 N/A N/A N/A N/A 49 35 Index 13.3 13 N/A N/A N/A N/A 30 7 Hypopneas (4% Desat) Count 18 18 N/A N/A N/A N/A 6 12 Index 2.8 2.8 N/A N/A N/A N/A 3.7 2.6 Apneas & All Hypopneas Count 102 102 N/A N/A N/A N/A 55 47 Index 16.1 16 N/A N/A N/A N/A 33.7 10.0 Respiratory Events (Engagement Executive+All Hyp+RERA) Count 102 102 N/A N/A N/A N/A 55 47 Index 16.1 16 N/A N/A N/A N/A 33.7 10.0 Respiratory Related Arousal Count 15 102 N/A N/A N/A N/A 3 15 Index 2.8 3 N/A N/A N/A N/A 2 3 Snoring Analysis Supine Right Left Prone REM NREM Total Snore duration 0.5 min Snores count 15 N/A N/A N/A 8 7 15 Snore mean duration 1.8 Sec Snores index 2 N/A N/A N/A 4.9 1.5 2.4 TST with snoring (%) 0.1% Desaturation Event Summary: Minimum %SpO2 Event Count Mean/Min/Max Duration(sec.) Desaturation Index % Time In Bed > 90 73 42.0 / 15.3 / 60.0 10.0 95.7 86 - 90 1 10.5 / 10.5 / 10.5 3.1 4.2 81 - 85 0 N/A 0.0 0.1 76 - 80 0 N/A 0.0 0.0 71 - 75 0 N/A 0.0 0.0 66 - 70 0 N/A 0.0 0.0 61 - 65 0 N/A 0.0 0.0 56 - 60 0 N/A 0.0 0.0 51 - 55 0 N/A 0.0 0.0 < 50 0 N/A 0.0 0.0 Total REM NREM Awake <50% 0.0 min. 0.0 min. 0.0 min. 0.0 min. 51 - 60% 0.0 min. 0.0 min. 0.0 min. 0.0 min. 61 - 70% 0.0 min. 0.0 min. 0.0 min. 0.0 min. 71 - 80% 0.0 min. 0.0 min. 0.0 min. 0.0 min. 81 - 90% 19.7 min. 9.6 min. 8.3 min. 1.9 min. 91 - 100% 436.9 min. 88.4 min. 272.7 min. 75.7 min. Average 94 94 94 95 Minimum SpO2 84 85 84 86 Desaturation Event Index 9.0 22.0 6.6 4.7 # Desat. Events below 89% 23 9 14 0 Time(%) with Saturation below 89% 1.4 0.7 0.5 0.2 Time(min.) with Saturation below 89% 6.4 3.1 2.4 0.9 Time (mins) REM (mins) NREM (mins) % of TST SpO2 Below 90% 46 23 N23 2.8 SpO2 Below 88% 15 0 0 1 Heart Rate Analysis Min (bpm) Max (bpm) Average (bpm) Awake 61 101 73 NREM 55 97 66 REM 58 100 71 Overall 55 100 68 Supplemental O2 Values Minimum O2 level: None Value Start Time End Time Clinical Trial Educator Comments Mrs. Raines slept in the right, left, supine and prone positions. C arrhythmia noted. No PLMs noted. No bruxism noted. PAP initiated at an IPAP of +8 CMH2O and an EPAP of +4 CMH2O up-titrated to a of: IPAP +[id number], EPAP +18 CMH20 BiFlex with a rate of10 BPM. Patient would consistently have over 60 second obstructive apneas in REM. A small Quattro FX full face mask was used during titration. Mrs. Raines awoke to use the restroom once times during the night and decided to read a little after her trip to the restroom around midnight . The final report will be interpreted and signed by a sleep physician. The completed physician report will then be placed in the patient medical record. Therapy Event: Therapy (cm H20) 8 106 12/6 13/6 14/7 15/8 15/9 15/10 Total Time at Pressure (min.) 33.2 26.3 106.5 7.2 13.0 8.6 26.5 15.3 TST at Pressure (min.) 0.5 15.4 41.1 6.7 13.0 8.6 26.5 15.3 # Periods 1 1 1 1 1 1 1 1 Sleep Onset (min.) 32.5 0.3 0.0 0.1 0.0 0.0 0.0 0.0 REM Onset (min.) N/A N/A N/A N/A N/A N/A 16.7 0.0 Sleep Efficiency % 1 58 38 92 100 100 100 100 Wakefulness (%) 98.5 41.2 61.5 7.7 0.0 0.0 0.0 0.0 Wakefulness (min.) 32.7 10.8 65.4 0.6 0.0 0.0 0.0 0.0 NREM 1 (%) 1.5 17.1 7.5 6.9 0.0 0.0 0.0 0.0 NREM 1 (min.) 0.5 4.5 8.0 0.5 0.0 0.0 0.0 0.0 NREM 2 (%) 0.0 41.7 31.0 85.4 100.0 78.6 0.0 0.0 NREM 2 (min.) 0.0 10.9 33.1 6.2 13.0 6.8 0.0 0.0 NREM 3 (%) 0.0 0.0 0.0 0.0 0.0 21.4 62.8 0.0 NREM 3 (min.) 0.0 0.0 0.0 0.0 0.0 1.8 16.7 0.0 REM (%) 0.0 0.0 0.0 0.0 0.0 0.0 37.2 100.0 REM (min.) 0.0 0.0 0.0 0.0 0.0 0.0 9.9 15.3 # Arousals 1 4 17 1 2 0 0 3 Arousal Index 120.0 15.5 24.8 9.0 9.2 0.0 0.0 11.8 # Snore 0 0 1 0 0 2 1 2 Snore Index 0.0 0.0 1.5 0.0 0.0 13.9 2.3 7.8 AHI 0.0 11.7 19.0 44.8 41.4 34.9 24.9 39.2 AHI Supine 0.0 11.7 19.0 44.8 41.4 34.9 24.9 39.2 AHI Non-Supine N/A N/A N/A N/A N/A N/A N/A N/A NREM AHI 0.0 11.7 19.0 44.8 41.4 34.9 10.8 N/A REM AHI N/A N/A N/A N/A N/A N/A 48.5 39.2 RDI 0.0 11.7 19.0 44.8 41.4 34.9 24.9 39.2 # Obstructive 0 0 1 0 0 2 9 7 # Central Ap 0 2 9 3 2 0 0 0 # Mixed 0 0 2 1 2 1 0 0 # Hypopneas 0 1 1 1 5 2 2 3 RERAS 0 0 0 0 0 0 0 0 Total Respiratory Events 0 3 13 5 9 5 11 10 Time Below SpO2 89.00% (min.) 0.0 0.0 0.9 0.4 0.8 0.3 0.6 0.0 Mean NREM SpO2 (%) 93 92 93 93 93 93 93 N/A Mean REM SpO2 (%) N/A N/A N/A N/A N/A N/A 93 94 Mean Sleep SpO2 (%) 93 92 93 93 93 93 93 94 Min NREM SpO2 (%) 92 89 84 86 86 87 89 N/A Min REM SpO2 (%) N/A N/A N/A N/A N/A N/A 85 89 Position Supine (min.) 0.5 15.4 41.1 6.7 13.0 8.6 26.5 15.3 Position Non-supine (min.) 0.0 0.0 0.0 0.0 0.0 0.0 0.0 0.0 LM Index Sleep 0.0 3.9 1.5 0.0 0.0 0.0 2.3 3.9 LM Index NREM 0.0 3.9 1.5 0.0 0.0 0.0 0.0 N/A LM Index REM N/A N/A N/A N/A N/A N/A 6.1 3.9 Mean Heart Rate (bpm) 67 69 68 64 65 64 69 72 Min Heart Rate (bpm) 67 64 55 60 60 60 61 58 Therapy (cm H20) 06/09 16/12 17/13 18/14 19/15 20/16 21/17 22/18 Total Time at Pressure (min.) 16.7 39.5 25.0 19.1 49.3 44.3 9.6 52.8 TST at Pressure (min.) 16.2 38.0 24.0 19.1 48.8 43.8 9.1 52.8 # Periods 1 1 1 1 1 1 1 1 Sleep Onset (min.) 0.0 0.0 0.0 0.0 0.0 0.0 0.0 0.0 REM Onset (min.) 0.0 N/A 20.1 0.0 0.0 41.7 0.0 0.0 Sleep Efficiency % 97 96 96 100 99 98 94 100 Wakefulness (%) 3.0 3.8 4.0 0.0 1.0 1.1 5.2 0.0 Wakefulness (min.) 0.5 1.5 1.0 0.0 0.5 0.5 0.5 0.0 NREM 1 (%) 3.0 1.3 2.0 0.0 4.1 2.3 5.2 0.0 NREM 1 (min.) 0.5 0.5 0.5 0.0 2.0 1.0 0.5 0.0 NREM 2 (%) 32.5 83.5 74.5 0.0 59.4 33.2 0.0 45.5 NREM 2 (min.) 5.4 33.0 18.6 0.0 29.3 14.7 0.0 24.0 NREM 3 (%) 0.0 11.4 0.0 0.0 24.3 57.5 0.0 13.3 NREM 3 (min.) 0.0 4.5 0.0 0.0 12.0 25.5 0.0 7.0 REM (%) 61.5 0.0 19.5 100.0 11.2 5.9 89.6 41.3 REM (min.) 10.3 0.0 4.9 19.1 5.5 2.6 8.6 21.8 # Arousals 1 3 1 1 3 2 0 0 Arousal Index 3.7 4.7 2.5 3.1 3.7 2.7 0.0 0.0 # Snore 0 2 0 2 3 0 1 1 Snore Index 0.0 3.2 0.0 6.3 3.7 0.0 6.6 1.1 AHI 18.5 4.7 17.5 53.4 4.9 4.1 46.2 0.0 AHI Supine 18.5 4.7 17.5 53.4 4.9 4.1 46.2 0.0 AHI Non-Supine N/A N/A N/A N/A N/A N/A N/A N/A NREM AHI 10.1 4.7 12.6 N/A 1.4 0.0 0.0 0.0 REM AHI 23.3 N/A 37.0 53.4 32.5 68.4 48.9 0.0 RDI 18.5 4.7 17.5 53.4 4.9 4.1 46.2 0.0 # Obstructive 3 3 7 17 4 3 5 0 # Central Ap 0 0 0 0 0 0 0 0 # Mixed 1 0 0 0 0 0 0 0 # Hypopneas 1 0 0 0 0 0 2 0 RERAS 0 0 0 0 0 0 0 0 Total Respiratory Events 5 3 7 17 4 3 7 0 Time Below SpO2 89.00% (min.) 0.1 0.0 0.5 0.5 0.0 0.5 0.9 0.0 Mean NREM SpO2 (%) 95 94 94 N/A 94 95 96 96 Mean REM SpO2 (%) 94 N/A 92 94 95 91 92 97 Mean Sleep SpO2 (%) 94 94 94 94 94 95 92 96 Min NREM SpO2 (%) 90 92 90 N/A 91 92 94 95 Min REM SpO2 (%) 88 N/A 87 85 93 85 87 96 Position Supine (min.) 16.2 38.0 24.0 19.1 48.8 43.8 9.1 52.8 Position Non-supine (min.) 0.0 0.0 0.0 0.0 0.0 0.0 0.0 0.0 LM Index Sleep 0.0 1.6 0.0 3.1 1.2 1.4 0.0 0.0 LM Index NREM 0.0 1.6 0.0 N/A 1.4 1.5 0.0 0.0 LM Index REM 0.0 N/A 0.0 3.1 0.0 0.0 0.0 0.0 Mean Heart Rate (bpm) 71 67 67 73 69 64 77 65 Min Heart Rate (bpm) 61 61 62 60 61 59 62 61
--- NOTE | 2018-02-17 13:49 | POLYSOMNOGRAPH REPORT ---
CLINICAL DATA: The patient is a 67-year-old female with a history of sleep apnea dating back to 2010. Initially, she had an apnea-hypopnea index of 10. She was treated with CPAP at 7 cm. In 2016, a retitration was done and her CPAP was set at 13. More recently, her CPAP has been moved up to 19 cm based upon compliance data. She still has significant sleep apnea at that level. Thus, she is referred in for a trial of BiPAP in light of the lack of response to high pressures of CPAP. SLEEP ARCHITECTURE: The total sleep period was 460.5 minutes. The total sleep time was 379 minutes. The sleep efficiency is moderately reduced to 77%. The sleep latency was prolonged to 32.5 minutes. Wake after sleep onset was increased to 81.5 minutes. The REM latency was prolonged to 179 minutes. There were 3 REM periods during the night. Sleep consisted of stage N1 5%, stage N2 51%, stage N3 18%, stage REM 26%. AROUSAL DATA: The patient had a total of 39 arousals including 17 spontaneous arousals, 15 respiratory arousals, 3 PLM arousals, and 4 snoring arousals. The arousal index was 6. PLM DATA: The patient had a total of 8 periodic limb movements of sleep for a PLM index of 1.3. There were 3 arousals associated with limb movements for a PLM arousal index of 0.5. EKG: The underlying cardiac rhythm was normal sinus. She had moderate amount of PVCs as well as supraventricular premature contractions. The cardiac rates ranged from 55-100 beats per minute with an average heart rate of 68 beats per minute. RESPIRATORY DATA: The patient's respiratory events were treated with BiPAP up to a final pressure of 22/18. She had a total of 102 respiratory events including 16 central apneas, 61 obstructive apneas, 7 mixed apneas, and 18 hypopneas. The longest apnea was 97.7 seconds. The mean duration of the hypopneas was 42.4 seconds. The apnea-hypopnea index was moderately elevated at 16.1 events per hour. OXIMETRY DATA: The average saturation for the night was 94%. The minimum saturation was 84%. There was a total of 6.4 minutes with saturations less than 89%. [employer] COMMENTS: Mrs. Raines slept in the right, left, supine, and prone positions. Cardiac arrhythmia noted. No bruxism noted. BiPAP initiated at iPAP 8 and EPAP 4. This was titrated upward to a final pressure of iPAP 22 and EPAP 18, Bi-Flex with a rate of 10. The patient would consistently have over 60-second obstructive apneas in REM sleep. A small Quattro FX full face mask was used during titration. She awakened to use the restroom one time during the night and decided to read a little after her trip to the restroom around midnight. IMPRESSION: Obstructive sleep apnea -- improved with BiPAP 22/18. COMMENTS: The patient required very high pressures of BiPAP. She was having very prolonged episodes of obstructive apneas during REM sleep. It appears that she likely was supine during these episodes. The longest apnea was noted to be 97 seconds. Somewhat surprisingly, there were transient, but not significant decreases in oxygen saturations even at the time of these prolonged apnea events. At the final pressure of 22/18, she had 0 respiratory events for an apnea-hypopnea index of 0. She was at that pressure for a total of 52.8 minutes. In light of the very prolonged apneas, it would be advised that she have a BiPAP with a backup rate if at all possible. RECOMMENDATIONS: 1. It is advised that the patient be switched to BiPAP with pressures 22/18. 2. The patient should avoid sleeping in the supine position. 3. Compliance data needs to be checked fairly readily to determine if the apneic events are being resolved.
== END | disposition home or self-care (01) ==
LOC: C.NEUR 20:00
PROVIDERS: ATTEND Internal Medicine Pulmonary Disease
DX: G47.33 Obstructive sleep apnea (adult) (pediatric) (principal)

== ENCOUNTER → 2018-06-12 | Outpatient (CLI) | payer OTHER ==
[2018-06-12 14:34] LABS: BASO % 0.8 %; BASO ABS # 0.03 K/uL (0-0.2); EOS % 1.9 %; EOS ABS # 0.07 K/uL (0-0.5); HEMATOCRIT 36.5 % (37-47); HEMOGLOBIN 11.6 g/dL (12.0-16.0); LYMPH % 24.6 %; LYMPH ABS # 0.92 K/uL (1.2-3.4); MEAN CORPUSCULAR HEMOGLOBIN 31.8 pg (25-34); MEAN CORPUSCULAR HGB CONC 31.8 g/dl (32-36); MEAN PLATELET VOLUME 12.6 fL (7.4-10.4); MONO ABS # 0.41 K/uL (0.11-0.59); NEUT % 61.7 %; NEUT ABS # 2.31 K/uL (1.4-6.5); PLATELET COUNT 181 K/uL (130-400); RED CELL DISTRIBUTION WIDTH CV 13.8 % (11.5-14.5); RED CELL DISTRIBUTION WIDTH SD 49.8 fL (36.4-46.3); WHITE BLOOD COUNT 3.74 K/uL (4.8-10.8)
[2018-06-12 15:09] LABS: ALBUMIN 3.6 gm/dl (3.4-5.0); ALKALINE PHOSPHATASE 96 U/L (45-117); ALT/SGPT 27 U/L (12-78); AST/SGOT 14 U/L (15-37); BLOOD UREA NITROGEN 16 mg/dl (7-18); CALCIUM 8.4 mg/dl (8.5-10.1); CARBON DIOXIDE 25 mmol/L (21-32); CREATININE 0.65 mg/dl (0.60-1.20); GLUCOSE 82 mg/dl (70-99); SODIUM 141 mmol/L (136-145)
== END | disposition home or self-care (01) ==
LOC: C.LAB 12:54
PROVIDERS: ATTEND Nurse Practitioner Family
DX: Z85.3 Personal history of malignant neoplasm of breast (principal)